=== PATIENT | female | born 1945 | race Caucasian/White ===

== ENCOUNTER 2019-05-29 08:34 | Emergency (ER) | payer MEDICARE, OTHER ==
[~2019-05-29] VITALS: Ht 152.4 cm; Wt 38.0 kg
[~2019-05-29 08:34] MED LIST: BUDE10.2 INH; CEFD300C3 PO; IPRA3AMP31 IH; IPRA4AER IH; PRED20TA PO
[2019-05-29 09:58] LABS: BASOPHILS % (AUTO) 0.1 % (0-1); EOSINOPHILS % (AUTO) 0 % (0-6); HEMATOCRIT 43.7 % (35.0-45.0); HEMOGLOBIN 14.9 g/dl (12.0-16.0); LYMPHOCYTES # (AUTO) 0.6 X10'3 (1.1-4.8); LYMPHOCYTES % (AUTO) 7.1 % (21-51); MEAN CORPUSCULAR HEMOGLOBIN 30.4 PG (27.0-31.0); MEAN CORPUSCULAR HGB CONC 34.1 g/dL (33.0-36.5); MEAN CORPUSCULAR VOLUME 89.3 FL (78-98); MEAN PLATELET VOLUME 8.1 FL (7.4-10.4); MONOCYTES # (AUTO) 0.2 X10'3 (0-0.9); MONOCYTES % (AUTO) 2.3 % (2-12); NEUTROPHILS # (AUTO) 7.3 X10'3 (1.8-7.7); NEUTROPHILS % (AUTO) 90.5 % (42-75); PLATELET COUNT 242 X10'3 (140-440); RED BLOOD COUNT 4.89 X10'6 (4.20-5.60); RED CELL DISTRIBUTION WIDTH 13.3 % (11.5-14.5); WHITE BLOOD COUNT 8.1 X10'3 (4.5-11.0)
[2019-05-29] MEDS ORDERED: ipratropium/albuterol 3ml nebule NEB ONE (10:15)
[2019-05-29] MEDS ORDERED: normal saline 1000ML IV soln IVB ONE (10:20)
[2019-05-29 10:23] LABS: ALANINE AMINOTRANSFERASE 30 U/L (12-78); ALBUMIN 3.8 G/DL (3.4-5.0); ALBUMIN/GLOBULIN RATIO 1.1 (1.1-1.5); ALKALINE PHOSPHATASE 70 IU/L (46-116); ASPARTATE AMINO TRANSFERASE 20 U/L (10-37); BILIRUBIN,TOTAL 0.4 MG/DL (0.1-1.0); BLOOD UREA NITROGEN 17 MG/DL (7-18); BUN/CREATININE RATIO 17.5 (6.6-38.0); CALCIUM 8.9 MG/DL (8.5-10.1); CHLORIDE 103 MMOL/L (99-107); CREATININE 0.97 MG/DL (0.40-0.90); GLUCOSE 116 MG/DL (70-104); TOTAL CARBON DIOXIDE 31.7 MMOL/L (24-32); TOTAL PROTEIN 7.4 G/DL (6.4-8.2); eGFR 56 ML/MIN
[2019-05-29 10:31] LABS: POTASSIUM 2.8 MMOL/L (3.5-5.1)
[2019-05-29] MEDS ORDERED: potassium Cl 10 mEq/100mL bag IV ONE (10:35)
[2019-05-29] MEDS ORDERED: iohexol 350MG/ML 100ml bottle IV ONE (10:55)
[2019-05-29] MEDS ORDERED: potassium Cl 20 mEq SR tablet PO STA (11:01)
[2019-05-29] MEDS ORDERED: POTA8CAP20 PO (11:23)
[2019-05-29] MEDS ORDERED: METH4TAB81 PO (11:23)
[2019-05-29 11:26] LABS: MAGNESIUM 2.3 MG/DL (1.5-2.4)
[2019-05-29 11:27] LABS: ANION GAP 8 (8-16); SODIUM 143 MMOL/L (135-145)
[2019-05-29 12:11] VITALS: BP 160/89
== END 2019-05-29 12:27 | disposition home or self-care (01) ==
LOC: ER 08:35
DX: J44.1 Chronic obstructive pulmonary disease with (acute) exacerbation (principal); E87.6 Hypokalemia; R19.7 Diarrhea, unspecified; Z88.0 Allergy status to penicillin; Z88.5 Allergy status to narcotic agent; Z88.2 Allergy status to sulfonamides; Z88.8 Allergy status to other drugs, medicaments and biological substances; Z79.899 Other long term (current) drug therapy
CPT/HCPCS: 36415; 71046; 80053; 83735; 84484; 85025; 93005; 94640; 96365; 99284; J3480; J7030; Q9967; 94760; 96374; J7040